=== PATIENT | female | born 1955 | race Caucasian/White ===

== ENCOUNTER 2021-10-16 12:08 | Emergency (ER) | payer MEDICARE ==
[~2021-10-16] VITALS: Ht 177.8 cm; Wt 56.7 kg
--- NOTE | 2021-10-16 12:28 | NUR ---
at bedside for evaluation.
[2021-10-16] MEDS ORDERED: TRAMADOL HCL 50 MG TABLET PO ONE (12:30)
[2021-10-16] MEDS ORDERED: TRAMADOL HCL 50 MG TABLET ONE (12:32)
--- NOTE | 2021-10-16 12:56 | NUR ---
Patient taken to CT.
--- NOTE | 2021-10-16 13:09 | NUR ---
Patient back from CT scan.
[2021-10-16] MEDS ORDERED: HYDROCODONE/APAP 5-325MG TABLET ONE (13:24)
[2021-10-16] MEDS ORDERED: HYDROCODONE/APAP 5-325MG TABLET PO ONE (13:30)
[2021-10-16] MEDS ORDERED: HYDR-4209 PO ×2 (13:36→13:48)
[2021-10-16] MEDS ORDERED: CEPH500C2 PO ×2 (13:36→13:48)
--- NOTE | 2021-10-16 13:56 | NUR ---
Patient discharged to home in stable condition. Written and verbal after care instructions given. Patient verbalizes understanding of instructions. Stressed follow up or return to ER for worsening s/s.
[2021-10-16 13:57] VITALS: BP 128/72
== END 2021-10-16 13:55 | disposition home or self-care (01) ==
LOC: EDBD 12:08 → ER 12:08
DX: S02.32XA Fracture of orbital floor, left side, initial encounter for closed fracture (principal); S02.842A Fracture of lateral orbital wall, left side, initial encounter for closed fracture; W01.190A Fall on same level from slipping, tripping and stumbling with subsequent striking against furniture, initial encounter; Y92.019 Unspecified place in single-family (private) house as the place of occurrence of the external cause; Z85.828 Personal history of other malignant neoplasm of skin; Z85.118 Personal history of other malignant neoplasm of bronchus and lung; S01.81XA Laceration without foreign body of other part of head, initial encounter; S01.412A Laceration without foreign body of left cheek and temporomandibular area, initial encounter; H11.32 Conjunctival hemorrhage, left eye; Z87.820 Personal history of traumatic brain injury
CPT/HCPCS: 70450; 70486; A4663

== ENCOUNTER 2022-02-05 22:01 | Emergency (ER) | payer MEDICARE ==
[~2022-02-05] VITALS: Ht 177.8 cm; Wt 54.4 kg
[~2022-02-05 22:01] MED LIST: CEPH500C2 PO; HYDR-4209 PO
[2022-02-05] MEDS ORDERED: IV NORMAL SALINE 1000 ML BAG IV ONE (23:15)
[2022-02-05] MEDS ORDERED: METOCLOPRAMIDE HCL 10 MG/2 ML VIAL IV ONE (23:15)
[2022-02-05] MEDS ORDERED: diphenhydrAMINE 50 MG/1 ML VIAL IV ONE (23:15)
[2022-02-05] MEDS ORDERED: MORPHINE SULFATE 4 MG/1 ML DISP.SYRIN IV ONE (23:15)
[2022-02-05] MEDS ORDERED: ONDANSETRON 4 MG/2 ML VIAL IV ONE (23:15)
[2022-02-05 23:27] LABS: HEMATOCRIT 45.7 % (31.2-41.9); MEAN CORPUSCULAR HEMOGLOBIN 26.7 uug (24.7-32.8); MEAN CORPUSCULAR VOLUME 81.8 fL (75.5-95.3); PLATELET COUNT (AUTO) 345 K/uL (179-408)
[2022-02-05 23:50] LABS: ALANINE AMINOTRANSFERASE 24 U/L (14-59); ALKALINE PHOSPHATASE 64 U/L (50-136); ASPARTATE AMINOTRANSFERASE 19 U/L (15-37); BILIRUBIN,DIRECT 0.1 mg/dL (0.0-0.2); BILIRUBIN,TOTAL 0.4 mg/dL (0.2-1.0); CARBON DIOXIDE 24 mmol/L (21-32); CHLORIDE 101 mmol/L (98-107); CREATININE 1.2 mg/dL (0.6-1.3); GLUCOSE 147 mg/dL (74-106); POTASSIUM 3.8 mmol/L (3.5-5.1); TOTAL PROTEIN, SERUM 8.3 g/dL (6.4-8.2); UREA NITROGEN, BLOOD 18 mg/dL (7-18)
[2022-02-06] MEDS ORDERED: diphenhydrAMINE 50 MG/1 ML VIAL ONE ×2 (00:23→05:01)
[2022-02-06] MEDS ORDERED: METOCLOPRAMIDE HCL 10 MG/2 ML VIAL ONE ×2 (00:23→05:01)
[2022-02-06] MEDS ORDERED: MORPHINE SULFATE 4 MG/1 ML DISP.SYRIN ONE (00:23)
--- NOTE | 2022-02-06 01:18 | NUR ---
Patient in bed at lowest position, sr up x2 call light within reach.
[2022-02-06] MEDS ORDERED: MAGNESIUM SULFATE/D5W 100 ML ONE ×2 (02:36→03:56)
[2022-02-06] MEDS: MAGNESIUM SULFATE/D5W 100 ML IV SCH ×2 (02:44→04:01)
[2022-02-06] MEDS ORDERED: ONDANSETRON 4 MG/2 ML VIAL ONE (04:09)
[2022-02-06] MEDS ORDERED: diphenhydrAMINE 50 MG/1 ML VIAL IV ONE (05:00)
[2022-02-06] MEDS ORDERED: METOCLOPRAMIDE HCL 10 MG/2 ML VIAL IV ONE (05:00)
[2022-02-06] MEDS ORDERED: LISINOPRIL 10 MG TABLET PO ONE (05:15)
[2022-02-06] MEDS ORDERED: LISINOPRIL 10 MG TABLET ONE (05:22)
[2022-02-06] MEDS ORDERED: HYDR-4209 PO (05:54)
[2022-02-06] MEDS ORDERED: DIPH25CA83 PO (05:58)
[2022-02-06] MEDS ORDERED: METO-295 PO (05:58)
--- NOTE | 2022-02-06 06:32 | NUR ---
Patient ambulated to the bathroom with steady gait. No acute distress noted.
--- NOTE | 2022-02-06 07:34 | NUR ---
Removed IV intact, site okay, bandaged. Gave pt and RX and d/c instructions, verbalized understanding.
[2022-02-06 07:35] VITALS: BP 191/109
[2022-02-09] MEDS ORDERED: CIPR500T5 PO (13:21)
[2022-02-09] MEDS ORDERED: ONDA4TAB5 PO (13:21)
[2022-02-09] MEDS ORDERED: FAMO-132 PO (13:26)
== END 2022-02-06 07:25 | disposition home or self-care (01) ==
LOC: ER 22:05
DX: R10.13 Epigastric pain (principal); R19.7 Diarrhea, unspecified; R11.11 Vomiting without nausea; J02.9 Acute pharyngitis, unspecified; R05.9 Cough, unspecified; Z20.822 Contact with and (suspected) exposure to COVID-19; R94.8 Abnormal results of function studies of other organs and systems; R94.31 Abnormal electrocardiogram [ECG] [EKG]; Z85.118 Personal history of other malignant neoplasm of bronchus and lung; Z85.05 Personal history of malignant neoplasm of liver; Z92.21 Personal history of antineoplastic chemotherapy; Z92.3 Personal history of irradiation; Z87.820 Personal history of traumatic brain injury; Z85.828 Personal history of other malignant neoplasm of skin
CPT/HCPCS: 99285; 74176; 96375; 96361 ×2; 80076; 80048; 83880; 85025; 84484; 36415 ×2; 93005; 83605; 96365; 71045; 96366; 87426; 83690; 87400; 96376; J1200 ×2; J3475 ×2; J2765 ×2; J2405; J2270; J7040; A4663

== ENCOUNTER → 2022-02-09 | Emergency (ER) | payer MEDICARE ==
[~2022-02-09] VITALS: Ht 182.9 cm; Wt 77.1 kg
[~2022-02-09] MED LIST changes: +CIPR500T5 PO; +DIPH25CA83 PO; +FAMO-132 PO; +FAMOTIDINE. 20 MG/2 ML VIAL IV ONE; +IOHEXOL 300MG/ML 100 ML INFUS..BTL ONE; +IV NORMAL SALINE 1000 ML BAG IV ONE; +IV NORMAL SALINE 250 ML IV ONE; +LIDOCAINE VISCUS 2% 15 ML UDC MM ONE; +LIDOCAINE VISCUS 2% 15 ML UDC ONE; +MAG HYDROX/AL HYDROX/SIMETH 30 ML LIQUID UDC ONE; +MAG HYDROX/AL HYDROX/SIMETH 30 ML LIQUID UDC PO ONE; +METO-295 PO; +MORPHINE SULFATE 4 MG/1 ML DISP.SYRIN IV ONE; +MORPHINE SULFATE 4 MG/1 ML DISP.SYRIN ONE; +ONDA4TAB5 PO; +ONDANSETRON 4 MG/2 ML VIAL IV ONE; +ONDANSETRON 4 MG/2 ML VIAL ONE; +SWABABLE VALVE TRANSFER SET EA MC ONE
--- NOTE | 2022-02-09 10:00 | NUR ---
PT BROUGHT IN BY EMS; ABD PAIN 10/10 SHARP. PLACED ON MANAGER OF APPLICATION DEVELOPMENT.
[2022-02-09 10:18] LABS: HEMATOCRIT 42.5 % (31.2-41.9); MEAN CORPUSCULAR HEMOGLOBIN 26.9 uug (24.7-32.8); MEAN CORPUSCULAR VOLUME 80.5 fL (75.5-95.3); PLATELET COUNT (AUTO) 331 K/uL (179-408)
--- NOTE | 2022-02-09 10:30 | NUR ---
IV STARTED AND MEDICATION GIVEN; PT TOLERATED WELL
[2022-02-09 10:33] LABS: NEUTROPHILS % (MANUAL) 0 % (42-75)
[2022-02-09 10:34] LABS: POTASSIUM 3.1 mmol/L (3.5-5.1)
[2022-02-09 10:39] LABS: BILIRUBIN,DIRECT 0.2 mg/dL (0.0-0.2); BILIRUBIN,TOTAL 0.6 mg/dL (0.2-1.0); TOTAL PROTEIN, SERUM 7.6 g/dL (6.4-8.2)
[2022-02-09 11:38] LABS: *BILIRUBIN,URIN NEGATIVE (NEGATIVE); *BLOOD, URINE 1+ (NEGATIVE); *CLARITY,URINE CLEAR (CLEAR); *COLOR,URINE YELLOW (YELLOW); *KETONES,URINE TRACE (NEGATIVE); *UROBILINOGEN,URINE 0.2 E.U./dl (NORMAL); LEUKOCYTE ESTERASE ,URINE NEGATIVE (NEGATIVE); NITRITE, URINE NEGATIVE (NEGATIVE); UGLUCOSE NEGATIVE (NEGATIVE)
[2022-02-09 12:55] LABS: BACTERIA,URINE NONE SEEN /HPF (NONE SEEN); RBC,URINE 0-3 /HPF (0-3); SQUAMOUS EPITHELIAL CELL,UR FEW /HPF (NONE SEEN); WBC,URINE 0-3 /HPF (0-3)
[2022-02-09 14:31] VITALS: BP 144/92
== END | disposition home or self-care (01) ==
LOC: ER 09:39
DX: K52.9 Noninfective gastroenteritis and colitis, unspecified (principal); K29.70 Gastritis, unspecified, without bleeding; R07.9 Chest pain, unspecified; C78.7 Secondary malignant neoplasm of liver and intrahepatic bile duct; Z85.118 Personal history of other malignant neoplasm of bronchus and lung; Z85.828 Personal history of other malignant neoplasm of skin; Z90.2 Acquired absence of lung [part of]; Z92.21 Personal history of antineoplastic chemotherapy; Z92.3 Personal history of irradiation; I10 Essential (primary) hypertension; Z90.710 Acquired absence of both cervix and uterus
CPT/HCPCS: 99285; 74177; 96374; 96361; 76705; 71045; 96375; 80076; 80048; 81001; 83690; 85025; 84484 ×2; 36415; 93005; 96376; 85007; J3490; J2405; Q9967; J2270 ×2; J7040; 70030-TC

== ENCOUNTER 2022-03-15 12:59 | Inpatient (IN) | payer MEDICARE ==
[~2022-03-15] VITALS: Ht 177.8 cm; Wt 54.4 kg
[~2022-03-15 12:59] MED LIST changes: -FAMOTIDINE. 20 MG/2 ML VIAL IV ONE; -IOHEXOL 300MG/ML 100 ML INFUS..BTL ONE; -IV NORMAL SALINE 1000 ML BAG IV ONE; -IV NORMAL SALINE 250 ML IV ONE; -LIDOCAINE VISCUS 2% 15 ML UDC MM ONE; -LIDOCAINE VISCUS 2% 15 ML UDC ONE; -MAG HYDROX/AL HYDROX/SIMETH 30 ML LIQUID UDC ONE; -MAG HYDROX/AL HYDROX/SIMETH 30 ML LIQUID UDC PO ONE; -MORPHINE SULFATE 4 MG/1 ML DISP.SYRIN IV ONE; -MORPHINE SULFATE 4 MG/1 ML DISP.SYRIN ONE; -ONDANSETRON 4 MG/2 ML VIAL IV ONE; -ONDANSETRON 4 MG/2 ML VIAL ONE; -SWABABLE VALVE TRANSFER SET EA MC ONE
--- NOTE | 2022-03-15 13:15 | NUR ---
1) Patient arrived in ER accompanied by sister. 2) Patient changed into a gown - feeling to cold to do so. 3) Provided with x2 blankets and made comfortable. 4) Vitals - bp diastolic in the lower 100s (1002 -105). 5) Patient stated that high diastolic is normal for her even though she is on home ant-bp meds. 6) MD informed of high diastolic - no new orders provided.
--- NOTE | 2022-03-15 13:31 | NUR ---
1) Patient seen by ER MD and ordered: Imaging as follows: (i) chest x-ray (ii) CT Scan of the lungs to rule out PE 2) Labs
[2022-03-15] MEDS ORDERED: PROC-11 PO (13:50)
[2022-03-15] MEDS ORDERED: LISI2.5T14 PO (13:50)
[2022-03-15] MEDS ORDERED: OLME40TA12 PO (13:50)
[2022-03-15] MEDS ORDERED: CLON2TAB PO (13:50)
[2022-03-15 14:00] LABS: POTASSIUM 4.1 mmol/L (3.5-5.1)
--- NOTE | 2022-03-15 14:03 | NUR ---
1) Patient complaining of feeling like she is struggling to breath. 2) However, sats in the mid 90s - 94-96 on RA. 3) MD informed and ordered 2L oxygen via NC, and administered as prescribed
[2022-03-15] MEDS ORDERED: IV NORMAL SALINE 250 ML IV ONE (14:05)
[2022-03-15] MEDS ORDERED: SWABABLE VALVE TRANSFER SET EA MC ONE (14:05)
[2022-03-15] MEDS ORDERED: IOHEXOL 350 100 ML INFUS..BTL ONE (14:05)
[2022-03-15 14:09] LABS: BILIRUBIN,DIRECT 0.1 mg/dL (0.0-0.2); BILIRUBIN,TOTAL 0.4 mg/dL (0.2-1.0); TOTAL PROTEIN, SERUM 7.3 g/dL (6.4-8.2)
[2022-03-15 14:15] LABS: HEMATOCRIT 36.8 % (31.2-41.9); MEAN CORPUSCULAR HEMOGLOBIN 26.3 uug (24.7-32.8); MEAN CORPUSCULAR VOLUME 80.9 fL (75.5-95.3); PLATELET COUNT (AUTO) 209 K/uL (179-408)
[2022-03-15 14:24] LABS: NEUTROPHILS % (MANUAL) 0 % (42-75)
--- NOTE | 2022-03-15 14:24 | NUR ---
1) Covid and Flue swabs taken and sent to lab at the time of this report - awaiting results.
--- NOTE | 2022-03-15 14:35 | NUR ---
CT informed that patient is ready as follows: (i) iv access 20g in the left AC - clean, dry, intact and patent. (ii) Consent signed (iii)Contrast checklist completed
--- NOTE | 2022-03-15 14:47 | NUR ---
Patient leaving now for CT Scan at the time of this report
--- NOTE | 2022-03-15 15:15 | NUR ---
Returned from CT SCan
[2022-03-15] MEDS ORDERED: DOXYCYCLINE HYCLATE IV 100 MG in IV DEXTROSE 5% 100 ML IV ONE (16:15)
[2022-03-15] MEDS ORDERED: CEFTRIAXONE 1 G in IV DEXTROSE 5% 50 ML IV ONE (16:15)
[2022-03-15] MEDS ORDERED: HYDROCODONE/APAP 5-325MG TABLET PO PRN (17:00)
[2022-03-15] MEDS ORDERED: CEFTRIAXONE /D5W 50ML IVPB **ER PYXIS IV ONE (17:05)
--- NOTE | 2022-03-15 17:10 | NUR ---
1) Pharmacy called and will send Vibramycin susanna. 2) RN administered Rocephin as prescribed.
[2022-03-15] MEDS ORDERED: MAGNESIUM HYDROXIDE 30 ML LIQUID UDC PO PRN (17:15)
[2022-03-15] MEDS ORDERED: REMEDY ESSENTIAL ZINC PASTE 113 GM TP PRN (17:15)
--- NOTE | 2022-03-15 17:28 | NUR ---
Vibramycin received and administered as prescribed
--- NOTE | 2022-03-15 18:14 | NUR ---
1) Patient lying in bed comfortably - no further complaints except: 2) may have taken her cell phone - called him and left a message
[2022-03-15] MEDS: ALBUTEROL SULFATE 1.25 MG/3 ML NEBU NEB PRN (20:39)
[2022-03-15] MEDS: IPRATROPIUM BROMIDE 0.5 MG/2.5 ML NEBU NEB PRN (20:39)
[2022-03-15] MEDS ORDERED: HYDROCODONE/APAP 5-325MG TABLET ONE (22:19)
[2022-03-15] MEDS ORDERED: ALBUTEROL SULFATE 2.5 MG/3 ML NEBU ONE (22:23)
[2022-03-15] MEDS ORDERED: ONDANSETRON 4 MG/2 ML VIAL IV ONE (22:30)
[2022-03-15] MEDS ORDERED: IPRATROPIUM BROMIDE 0.5 MG/2.5 ML NEBU NEB ONE (22:30)
[2022-03-15] MEDS ORDERED: ALBUTEROL SULFATE 2.5 MG/ 0.5 ML NEBU NEB ONE (22:30)
[2022-03-15] MEDS ORDERED: ONDANSETRON 4 MG/2 ML VIAL ONE (22:31)
--- NOTE | 2022-03-15 23:00 | NUR ---
Patient still on the ER tracker. no charted out by Dorina RESTREPO
--- NOTE | 2022-03-15 23:05 | NUR ---
Received patient from ER via gurney, awake alert and oriented x 4. In no acute distress. IV access to LAC intact and patent. Sinus rhythm on tele HR 95. Oriented to room, BR, TV and call light. Routine admission care rendered, care plan initiated. Needs assessed and attended to.
[2022-03-16 00:12] VITALS: BP 171/105
[2022-03-16] MEDS ORDERED: GUAIFENESIN/DEXTROMETHORPHAN TAB.SR.12H PO SCH (00:45)
[2022-03-16] MEDS: GUAIFENESIN/DEXTROMETHORPHAN 5 ML UDC PO PRN ×3 (01:30→23:20)
[2022-03-16 04:05] VITALS: BP 159/96
[2022-03-16] MEDS: IPRATROPIUM BROMIDE 0.5 MG/2.5 ML NEBU NEB PRN ×2 (04:38→10:44)
[2022-03-16] MEDS: ALBUTEROL SULFATE 1.25 MG/3 ML NEBU NEB PRN ×2 (04:39→10:44)
[2022-03-16 07:10] LABS: HEMATOCRIT 38.9 % (31.2-41.9); MEAN CORPUSCULAR HEMOGLOBIN 25.9 uug (24.7-32.8); MEAN CORPUSCULAR VOLUME 80.1 fL (75.5-95.3); PLATELET COUNT (AUTO) 197 K/uL (179-408)
[2022-03-16 07:27] LABS: CREATININE 0.9 mg/dL (0.6-1.3); MAGNESIUM 2.4 mg/dL (1.8-2.4); PHOSPHOROUS 2.3 mg/dL (2.5-4.9); POTASSIUM 3.8 mmol/L (3.5-5.1)
--- NOTE | 2022-03-16 07:30 | NUR ---
NIGHT REPORT: 1) SAFETY: (a) Patient has iv access LAC 20G - saline locked, however, on IV ATB. (b) No sign of infection, inflammation observed, site is patent, intact and flushing 2) BREATHING: Patient SOB - on 2 liters - Saturating between 94 - 96%. 3) MOBILITY: Patient is fully mobile - however, unsteady gait. 4) SKIN:Intact, no rash or discoloration observed. 5) PAIN: No c/o of pain or non verbal sign of pain. 6) EATING & DRINKING: Poor appetite. PLAN: (i) Continue to be on oxygen as prescribed. (ii) Await MD review - patient wants to know who her MD is (iii) treat patient accordingly (iv) Patient want nebulizer PRN as well as scheduled.
--- NOTE | 2022-03-16 09:00 | NUR ---
ROXIE OLIVEROS changed Vibramycin to Cefepime - for bronchitis
[2022-03-16] MEDS: FAMOTIDINE 20 MG TABLET PO SCH ×3 (10:07→18:06)
[2022-03-16] MEDS: CLONAZEPAM 1 MG TABLET PO SCH ×3 (10:07→18:08)
[2022-03-16] MEDS: LOSARTAN POTASSIUM 50 MG TABLET PO SCH (10:09)
[2022-03-16] MEDS: DOXYCYCLINE HYCLATE IV 100 MG in IV DEXTROSE 5% 100 ML IV SCH ×2 (10:12→20:34)
[2022-03-16 10:19] LABS: SITE, VBG LEFT RADIAL; VENT MODE, VBG Nasal Cannula
[2022-03-16 11:48] VITALS: BP 153/94
[2022-03-16] MEDS: IPRATROPIUM BROMIDE 0.5 MG/2.5 ML NEBU NEB SCH ×3 (12:09→21:10)
[2022-03-16] MEDS: ALBUTEROL SULFATE 2.5 MG/3 ML NEBU NEB SCH ×3 (12:09→21:11)
--- NOTE | 2022-03-16 15:00 | NUR ---
Spoke to DECORATING SUPERVISOR, patient complaining of pain: 1) [place] increased to 10/325 Q6 2) Dilaudid 1mg Q6 3) added Tessalon for coughing - can bring Mucinex and inform pharmacy to add it to [facility]
[2022-03-16 16:05] VITALS: BP 171/88
[2022-03-16] MEDS ORDERED: TOPI100T PO (16:43)
[2022-03-16] MEDS: HYDROMORPHONE 1 MG/1 ML DISP.SYRIN IM PRN ×2 (16:50→23:28)
[2022-03-16] MEDS: methylPREDNISolone SOD SUCC 40 MG/ML VIAL IV SCH ×2 (16:51→21:14)
[2022-03-16] MEDS: BENZONATATE 100 MG CAPSULE PO SCH ×2 (16:51→18:05)
[2022-03-16] MEDS: CEFEPIME HCL 2 G in IV DEXTROSE 5% 100 ML IV SCH ×2 (16:54→21:15)
[2022-03-16] MEDS ORDERED: NEUTRA PHOS PACKET PO ONE (17:00)
[2022-03-16] MEDS: TOPIRAMATE 100 MG TABLET PO SCH (18:06)
--- NOTE | 2022-03-16 19:23 | NUR ---
1) Patient much more happier after Dilaudid. 2) Will endorse care to night staff accordingly
[2022-03-16 20:00] VITALS: BP 139/99
[2022-03-16] MEDS ORDERED: CEFTRIAXONE 1 G in IV DEXTROSE 5% 50 ML IV SCH (21:00)
[2022-03-16] MEDS: ONDANSETRON 4 MG/2 ML VIAL IV PRN (23:41)
[2022-03-17] VITALS: BP 159/99
[2022-03-17 04:00] VITALS: BP 140/87
[2022-03-17] MEDS: GUAIFENESIN/DEXTROMETHORPHAN 5 ML UDC PO PRN ×2 (05:20→21:46)
[2022-03-17] MEDS: methylPREDNISolone SOD SUCC 40 MG/ML VIAL IV SCH ×2 (05:21→21:30)
[2022-03-17] MEDS: CEFEPIME HCL 2 G in IV DEXTROSE 5% 100 ML IV SCH ×3 (05:31→21:49)
[2022-03-17] MEDS: ALBUTEROL SULFATE 2.5 MG/3 ML NEBU NEB SCH ×4 (06:37→19:34)
[2022-03-17] MEDS: IPRATROPIUM BROMIDE 0.5 MG/2.5 ML NEBU NEB SCH ×4 (06:37→19:34)
[2022-03-17 06:56] LABS: HEMATOCRIT 38.3 % (31.2-41.9); MEAN CORPUSCULAR VOLUME 80.5 fL (75.5-95.3); PLATELET COUNT (AUTO) 220 K/uL (179-408)
--- NOTE | 2022-03-17 07:05 | NUR ---
Patient slept intermittently, no SOB, noted with occasional cough. Needs assessed and attended to.
[2022-03-17 07:07] LABS: MAGNESIUM 2.4 mg/dL (1.8-2.4); PHOSPHOROUS 2.2 mg/dL (2.5-4.9)
[2022-03-17] MEDS: DOXYCYCLINE HYCLATE IV 100 MG in IV DEXTROSE 5% 100 ML IV SCH ×2 (08:50→21:31)
[2022-03-17] MEDS: LOSARTAN POTASSIUM 50 MG TABLET PO SCH (08:51)
[2022-03-17] MEDS: FAMOTIDINE 20 MG TABLET PO SCH ×2 (08:52→16:28)
[2022-03-17] MEDS: BENZONATATE 100 MG CAPSULE PO SCH ×2 (08:52→16:30)
[2022-03-17] MEDS: CLONAZEPAM 1 MG TABLET PO SCH ×3 (08:52→16:28)
[2022-03-17] MEDS: TOPIRAMATE 100 MG TABLET PO SCH ×2 (08:52→16:28)
--- NOTE | 2022-03-17 09:00 | NUR ---
WENT TO PATIENT'S ROOM AFTER HEARING BANGING & CRASHING NOISES. FOUND PATIENT SLAMMING TELEPHONE ON CONSOLE UNTIL IT WAS BROKEN. PATIENT VERY UPSET THAT SHE HAD CALLED NURSE 7 TIMES WITH NO RESPONSE. INSTRUCTED THAT ONLY 2 PEOPLE HEARD ONE CALL, AND INSTRUCTED PATIENT THAT NURSES WERE STILL IN REPORT. TELEPHONE REPLACED. PATIENT STILL VERY ANGRY. APOLOGIZED TO PATIENT, INTRODUCED MYSELF ONCE PATIENT CALMED DOWN. ASSISTED BACK TO BED, AND BREAKFAST AND AM MEDS. GIVEN.
[2022-03-17] MEDS: HYDROMORPHONE 1 MG/1 ML DISP.SYRIN IM PRN ×3 (09:25→22:52)
[2022-03-17] MEDS: ONDANSETRON 4 MG/2 ML VIAL IV PRN ×2 (09:26→16:31)
--- NOTE | 2022-03-17 09:30 | NUR ---
PATIENT VERY APOLOGETIC, AND IV MED ADMINISTERED FOR PAIN CONTROL. MED FOR NAUSEA ALSO GIVEN FOR C/O NAUSEA STIMULATED BY DILAUDID.
--- NOTE | 2022-03-17 10:00 | NUR ---
SLEEPING. MEDS EFFECTIVE.
--- NOTE | 2022-03-17 10:30 | NUR ---
INSTRUCTED THAT BEVELING MACHINE OPERATOR NOTIFIED THAT PATIENT WISHES TO COMPLAIN ABOUT EVENTS EARLIER. STATES THAT PROBLEM NOW RESOLVED, AND SHE DID NOT WISH TO COMPLAIN.
[2022-03-17 11:26] VITALS: BP 144/90
[2022-03-17] MEDS: HYDROCODONE/APAP 10-325 MG TABLET PO PRN ×2 (13:22→21:46)
[2022-03-17] MEDS: ALBUTEROL SULFATE 1.25 MG/3 ML NEBU NEB PRN (13:56)
[2022-03-17] MEDS: IPRATROPIUM BROMIDE 0.5 MG/2.5 ML NEBU NEB PRN (13:56)
[2022-03-17 14:58] VITALS: BP 143/94
--- NOTE | 2022-03-17 16:30 | NUR ---
HERE, AND STANDING IN NURSING STATION, REQUESTING TO SPEAK TO CHARGE NURSE. INSTRUCTED THAT Robby ALLEN WAS HER NURSE, AND WILL SPEAK TO HIM OUTSIDE OF THE NURSING STATION. STATES THAT PATIENT NEEDED TO BE RECONNECTED TO IV. INSTRUCTED THAT ANTIBIOTICS ARE TIMED, AND NOT DUE AT THIS TIME. INSISTED THAT PT TECH HAD DC'D IV & IVPB. INSTRUCTED THAT PT TECH NOT ALLOWED TO TAMPER WITH IV LINES, AND ALEJANDRO RN HAD DISCONNECTED THE IV FOR AMBULATION AND EXERCISES. PATIENT AGREED THAT HOW IT TOOK PLACE.
[2022-03-17] MEDS ORDERED: SODIUM PHOSPHATE MM 15 MMOL in IV NORMAL SALINE 250 ML IV ONE (17:00)
--- NOTE | 2022-03-17 17:30 | NUR ---
RUBEN, AIR INTERCEPT CONTROLLER SUPERVISOR CALLED TO SPEAK WITH THIS ANGRY PER HIS REQUEST.
[2022-03-17 20:00] VITALS: BP 159/91
[2022-03-18] VITALS: BP 149/88
[2022-03-18] MEDS: HYDROCODONE/APAP 10-325 MG TABLET PO PRN ×3 (03:22→18:50)
[2022-03-18 04:00] VITALS: BP 145/97
[2022-03-18] MEDS: CEFEPIME HCL 2 G in IV DEXTROSE 5% 100 ML IV SCH ×3 (06:10→21:46)
[2022-03-18] MEDS: ALBUTEROL SULFATE 2.5 MG/3 ML NEBU NEB SCH ×4 (07:21→19:28)
[2022-03-18] MEDS: IPRATROPIUM BROMIDE 0.5 MG/2.5 ML NEBU NEB SCH ×4 (07:21→19:28)
[2022-03-18 07:45] LABS: HEMATOCRIT 39.9 % (31.2-41.9); MEAN CORPUSCULAR HEMOGLOBIN 25.9 uug (24.7-32.8); MEAN CORPUSCULAR VOLUME 81.5 fL (75.5-95.3); PLATELET COUNT (AUTO) 213 K/uL (179-408)
[2022-03-18 08:00] VITALS: BP 137/74
[2022-03-18] MEDS: HYDROMORPHONE 1 MG/1 ML DISP.SYRIN IM PRN ×3 (08:02→20:32)
[2022-03-18 08:04] LABS: MAGNESIUM 2.6 mg/dL (1.8-2.4); POTASSIUM 4.3 mmol/L (3.5-5.1)
[2022-03-18] MEDS: TOPIRAMATE 100 MG TABLET PO SCH ×2 (08:29→18:18)
[2022-03-18] MEDS: CLONAZEPAM 1 MG TABLET PO SCH ×3 (08:29→18:18)
[2022-03-18] MEDS: methylPREDNISolone SOD SUCC 40 MG/ML VIAL IV SCH (08:29)
[2022-03-18] MEDS: FAMOTIDINE 20 MG TABLET PO SCH ×2 (08:30→18:18)
[2022-03-18] MEDS: ONDANSETRON 4 MG/2 ML VIAL IV PRN (08:30)
[2022-03-18] MEDS: BENZONATATE 100 MG CAPSULE PO SCH ×2 (08:30→18:18)
[2022-03-18] MEDS: DOXYCYCLINE HYCLATE IV 100 MG in IV DEXTROSE 5% 100 ML IV SCH ×2 (08:32→20:20)
[2022-03-18] MEDS: LOSARTAN POTASSIUM 50 MG TABLET PO SCH (08:50)
[2022-03-18 11:06] VITALS: BP 149/48
[2022-03-18] MEDS: GLUCERNA SHAKE 237 ML CAN PO SCH ×2 (14:00→17:00)
[2022-03-18] MEDS: PROTEIN SUPPLEMENT (PROSTAT) 30 ML LIQUID PO SCH (14:00)
[2022-03-18] MEDS: GUAIFENESIN/DEXTROMETHORPHAN 5 ML UDC PO PRN ×2 (14:33→20:20)
[2022-03-18 15:37] VITALS: BP 159/86
[2022-03-19] MEDS: HYDROCODONE/APAP 10-325 MG TABLET PO PRN ×2 (00:30→10:26)
[2022-03-19] MEDS: ALBUTEROL SULFATE 1.25 MG/3 ML NEBU NEB PRN ×2 (00:44→13:22)
[2022-03-19] MEDS: IPRATROPIUM BROMIDE 0.5 MG/2.5 ML NEBU NEB PRN ×2 (00:44→13:22)
[2022-03-19] MEDS: HYDROMORPHONE 1 MG/1 ML DISP.SYRIN IM PRN (04:09)
[2022-03-19] MEDS: CEFEPIME HCL 2 G in IV DEXTROSE 5% 100 ML IV SCH ×3 (06:09→22:14)
[2022-03-19] MEDS: ALBUTEROL SULFATE 2.5 MG/3 ML NEBU NEB SCH ×4 (07:36→20:13)
[2022-03-19] MEDS: IPRATROPIUM BROMIDE 0.5 MG/2.5 ML NEBU NEB SCH ×4 (07:36→20:13)
[2022-03-19] MEDS: PROTEIN SUPPLEMENT (PROSTAT) 30 ML LIQUID PO SCH (08:00)
[2022-03-19] MEDS: GLUCERNA SHAKE 237 ML CAN PO SCH ×2 (08:00→16:39)
[2022-03-19] MEDS: FAMOTIDINE 20 MG TABLET PO SCH ×2 (09:27→16:35)
[2022-03-19] MEDS: predniSONE 20 MG TABLET PO SCH (09:27)
[2022-03-19] MEDS: LOSARTAN POTASSIUM 50 MG TABLET PO SCH (09:30)
[2022-03-19] MEDS: CLONAZEPAM 1 MG TABLET PO SCH ×3 (09:30→16:35)
[2022-03-19] MEDS: TOPIRAMATE 100 MG TABLET PO SCH ×2 (09:34→16:35)
[2022-03-19] MEDS: BENZONATATE 100 MG CAPSULE PO SCH ×2 (09:34→16:37)
[2022-03-19] MEDS: GUAIFENESIN/DEXTROMETHORPHAN 5 ML UDC PO PRN ×2 (09:37→15:29)
[2022-03-19] MEDS: DOXYCYCLINE HYCLATE IV 100 MG in IV DEXTROSE 5% 100 ML IV SCH ×2 (09:37→21:05)
--- NOTE | 2022-03-19 11:30 | NUR ---
B2B Sales Manager Mara spoke with pt and family. B2B Sales Manager witnessed pt "easing herself to floor" Pt states she hit her buttocks. New order received from dr Pinzon for x ray pelvis to r/o any fx. Addendum: 03/19/22 at 1818 by JERAMY HENRIQUEZ RN pt has full range of motions of her legs and hip denies any c/o pain.
--- NOTE | 2022-03-19 11:32 | NUR ---
WENT TO ROOM WHEN CHASE RN REGIONAL SALES DIRECTOR SCREAMED FOR HELP. FOUND PATIENT SITTING ON FLOOR. AT BEDSIDE. MADE NO ATTEMPT TO ASSIST , IN FACT HE REMAINED SILENT THROUGHOUT. ASKED TO NEUROLOGY MANAGER ORDER TO LIFT PATIENT TO CHAIR. PATIENT ASSISTED TO CHAIR BY Sammie. OTHER STAFF MEMBERS IN ROOM, BUT TOO CROWDED. INSTRUCTED THAT SHE NEEDS TO CALL FOR HELP TO GO TO BATHROOM. VERBALIZED UNDERSTANDING. CHASE RN AND ZENON RESTREPO WITNESSED PATIENT ASSISTING SELF TO FLOOR, AND LEANING ON WALL. PATIENT STATES THAT SHE SIMPLY PASSED OUT. FALL WAS NOT WITNESSED BY OR STAFF. PATIENT ASSISTED BACK TO BED. SHOCK ABSORPTION FLOOR LAYER CALLED TO MOP FLOOR. ANOTHER CHAIR PROVIDED FOR . DR. HILL AND DR. DESHPANDE NOTIFIED. XRAYS DONE AND RESULTS NEGATIVE.
[2022-03-19 11:48] VITALS: BP 185/90
[2022-03-19] MEDS: HYDROMORPHONE 1 MG/1 ML DISP.SYRIN IV PRN ×2 (13:42→21:13)
[2022-03-19] MEDS: ACETAMINOPHEN 325 MG TABLET PO PRN (15:20)
[2022-03-19 16:00] VITALS: BP 165/99
--- NOTE | 2022-03-19 16:00 | NUR ---
Pelvic fx resulted no fx. Pt ambulatory to bathroom w/o any c/o pain.
[2022-03-19] MEDS: ONDANSETRON 4 MG/2 ML VIAL IV PRN (21:34)
[2022-03-20] MEDS: HYDROCODONE/APAP 10-325 MG TABLET PO PRN ×3 (01:13→15:34)
[2022-03-20] MEDS: GUAIFENESIN/DEXTROMETHORPHAN 5 ML UDC PO PRN (01:13)
[2022-03-20] MEDS: ALBUTEROL SULFATE 1.25 MG/3 ML NEBU NEB PRN (03:32)
[2022-03-20] MEDS: IPRATROPIUM BROMIDE 0.5 MG/2.5 ML NEBU NEB PRN (03:32)
[2022-03-20] MEDS: HYDROMORPHONE 1 MG/1 ML DISP.SYRIN IV PRN ×3 (03:41→18:17)
[2022-03-20] MEDS: CEFEPIME HCL 2 G in IV DEXTROSE 5% 100 ML IV SCH ×3 (05:51→22:20)
[2022-03-20] MEDS: IPRATROPIUM BROMIDE 0.5 MG/2.5 ML NEBU NEB SCH ×4 (07:40→19:57)
[2022-03-20] MEDS: ALBUTEROL SULFATE 2.5 MG/3 ML NEBU NEB SCH ×4 (07:40→19:57)
[2022-03-20] MEDS: FAMOTIDINE 20 MG TABLET PO SCH ×2 (08:25→16:31)
[2022-03-20] MEDS: LOSARTAN POTASSIUM 50 MG TABLET PO SCH (08:25)
[2022-03-20] MEDS: TOPIRAMATE 100 MG TABLET PO SCH ×2 (08:26→16:32)
[2022-03-20] MEDS: predniSONE 20 MG TABLET PO SCH (08:26)
[2022-03-20] MEDS: BENZONATATE 100 MG CAPSULE PO SCH ×2 (08:26→16:32)
[2022-03-20] MEDS: CLONAZEPAM 1 MG TABLET PO SCH ×3 (08:26→16:31)
[2022-03-20] MEDS: GLUCERNA SHAKE 237 ML CAN PO SCH ×2 (08:27→17:15)
[2022-03-20] MEDS: PROTEIN SUPPLEMENT (PROSTAT) 30 ML LIQUID PO SCH (08:27)
[2022-03-20] MEDS: DOXYCYCLINE HYCLATE IV 100 MG in IV DEXTROSE 5% 100 ML IV SCH (08:28)
[2022-03-20 11:34] VITALS: BP 156/93
--- NOTE | 2022-03-20 12:41 | NUR ---
0730-REC'D PATIENT IN BED, AWAKE, ALERT, ORIENTED. ABLE TO VERBALIZE HER NEEDS AND FOLLOW DIRECTIONS. NO ACUTE RESPIRATORY DISTRESS NOTED; BALWINDER MIDLINE FLUSHING WELL. SAFETY PRECAUTION REMINDERS PROVIDED WITH GOOD UNDERSTANDING. ORAL FLUIDS ENCOURAGED AND TAKEN WELL. ENCOURAGED TO USE CALL LIGHT FOR HELP EVERY TIME NEEDED.
[2022-03-20 15:42] VITALS: BP 159/98
[2022-03-20] MEDS ORDERED: HYDROMORPHONE 1 MG/1 ML DISP.SYRIN IM PRN (18:15)
--- NOTE | 2022-03-20 18:47 | NUR ---
Patient alert, Ox4, verbalizes needs promptly and timely, follows directions. Assisted patient with ADLS/personal care/hygiene. Care provided at routine intervals and PRN. Fall precautions observed; safety precaution reminders provided with good understanding. Patient on oxygen via N/C as ordered and effective. Patient was medicated PRN based on her pain level needs & PRN medication effective. All scheduled medications administered timely. Needs anticipated and met.
--- NOTE | 2022-03-20 18:52 | NUR ---
Dilaudid 1mg PRN Q6RS for pain order given by Dr. Darrin Bourgeois.
[2022-03-20 20:23] VITALS: BP 150/101
[2022-03-20] MEDS: DOXYCYCLINE HYCLATE 100 MG TABLET PO SCH (21:26)
[2022-03-21 04:05] VITALS: BP 160/108
[2022-03-21] MEDS: HYDROMORPHONE 1 MG/1 ML DISP.SYRIN IV PRN (05:15)
[2022-03-21] MEDS: GUAIFENESIN/DEXTROMETHORPHAN 5 ML UDC PO PRN (05:16)
[2022-03-21] MEDS: CEFEPIME HCL 2 G in IV DEXTROSE 5% 100 ML IV SCH ×3 (05:17→21:26)
[2022-03-21] MEDS: ALBUTEROL SULFATE 2.5 MG/3 ML NEBU NEB SCH ×4 (07:37→19:46)
[2022-03-21] MEDS: IPRATROPIUM BROMIDE 0.5 MG/2.5 ML NEBU NEB SCH ×4 (07:38→19:46)
[2022-03-21 07:48] LABS: HEMATOCRIT 38.9 % (31.2-41.9); MEAN CORPUSCULAR HEMOGLOBIN 26.1 uug (24.7-32.8); MEAN CORPUSCULAR VOLUME 82.1 fL (75.5-95.3); PLATELET COUNT (AUTO) 258 K/uL (179-408)
[2022-03-21 08:00] VITALS: BP 161/101
[2022-03-21] MEDS: PROTEIN SUPPLEMENT (PROSTAT) 30 ML LIQUID PO SCH (08:00)
[2022-03-21] MEDS: GLUCERNA SHAKE 237 ML CAN PO SCH ×2 (08:00→17:17)
[2022-03-21 08:19] LABS: CARBON DIOXIDE 26 mmol/L (21-32); CHLORIDE 107 mmol/L (98-107); GLUCOSE 98 mg/dL (74-106); MAGNESIUM 2.6 mg/dL (1.8-2.4); PHOSPHOROUS 1.4 mg/dL (2.5-4.9); POTASSIUM 3.8 mmol/L (3.5-5.1); UREA NITROGEN, BLOOD 14 mg/dL (7-18)
[2022-03-21] MEDS: TOPIRAMATE 100 MG TABLET PO SCH ×2 (09:54→17:17)
[2022-03-21] MEDS: BENZONATATE 100 MG CAPSULE PO SCH ×2 (09:54→17:17)
[2022-03-21] MEDS: predniSONE 20 MG TABLET PO SCH (09:54)
[2022-03-21] MEDS: DOXYCYCLINE HYCLATE 100 MG TABLET PO SCH ×2 (09:54→21:26)
[2022-03-21] MEDS: FLUOXETINE HCL 20 MG CAPSULE PO SCH (09:55)
[2022-03-21] MEDS: FAMOTIDINE 20 MG TABLET PO SCH ×2 (09:55→17:17)
[2022-03-21] MEDS: CLONAZEPAM 1 MG TABLET PO SCH ×3 (09:55→17:16)
[2022-03-21] MEDS: LOSARTAN POTASSIUM 50 MG TABLET PO SCH (09:56)
[2022-03-21 11:24] VITALS: BP 162/103
[2022-03-21 12:18] LABS: LYMPHOCYTES % (MANUAL) 18 % (20-40); MONOCYTES % (MANUAL) 13 % (2-10); NEUTROPHILS % (MANUAL) 69 % (42-75)
[2022-03-21] MEDS ORDERED: POTASSIUM PHOSPHATE MM 15 MMOL in IV NORMAL SALINE 250 ML IV ONE (12:30)
[2022-03-21] MEDS: HYDROCODONE/APAP 10-325 MG TABLET PO PRN ×2 (13:00→21:26)
[2022-03-21] MEDS ORDERED: FAMOTIDINE. 20 MG/2 ML VIAL IV ONE (14:30)
[2022-03-21] MEDS ORDERED: diphenhydrAMINE 50 MG/1 ML VIAL IV ONE (14:30)
[2022-03-21] MEDS: ACETAMINOPHEN 325 MG TABLET PO PRN (15:42)
--- NOTE | 2022-03-21 15:43 | NUR ---
TEMP 100.2 PRN TYLENOL ADMIN. REPORTED TO CHARGE AND MD. SKINNER., RN
[2022-03-21 16:00] VITALS: BP 151/95
[2022-03-21 20:00] VITALS: BP 148/90
[2022-03-22] MEDS: CEFEPIME HCL 2 G in IV DEXTROSE 5% 100 ML IV SCH (05:22)
[2022-03-22] MEDS: HYDROCODONE/APAP 10-325 MG TABLET PO PRN (05:22)
[2022-03-22 06:49] LABS: HEMATOCRIT 37.2 % (31.2-41.9); MEAN CORPUSCULAR HEMOGLOBIN 26.3 uug (24.7-32.8); MEAN CORPUSCULAR VOLUME 81.9 fL (75.5-95.3); PLATELET COUNT (AUTO) 238 K/uL (179-408)
[2022-03-22 07:09] LABS: CREATININE 0.9 mg/dL (0.6-1.3); MAGNESIUM 2.5 mg/dL (1.8-2.4); POTASSIUM 4.5 mmol/L (3.5-5.1)
[2022-03-22] MEDS: IPRATROPIUM BROMIDE 0.5 MG/2.5 ML NEBU NEB SCH ×3 (07:27→15:21)
[2022-03-22] MEDS: ALBUTEROL SULFATE 2.5 MG/3 ML NEBU NEB SCH ×3 (07:27→15:21)
[2022-03-22] MEDS: CLONAZEPAM 1 MG TABLET PO SCH ×2 (08:32→12:27)
[2022-03-22] MEDS: predniSONE 20 MG TABLET PO SCH (08:32)
[2022-03-22] MEDS: FAMOTIDINE 20 MG TABLET PO SCH (08:33)
[2022-03-22] MEDS: TOPIRAMATE 100 MG TABLET PO SCH (08:33)
[2022-03-22] MEDS: DOXYCYCLINE HYCLATE 100 MG TABLET PO SCH (08:33)
[2022-03-22] MEDS: FLUOXETINE HCL 20 MG CAPSULE PO SCH (08:33)
[2022-03-22] MEDS: BENZONATATE 100 MG CAPSULE PO SCH (08:33)
[2022-03-22] MEDS: GLUCERNA SHAKE 237 ML CAN PO SCH (08:34)
[2022-03-22] MEDS: PROTEIN SUPPLEMENT (PROSTAT) 30 ML LIQUID PO SCH (08:35)
[2022-03-22] MEDS: LOSARTAN POTASSIUM 50 MG TABLET PO SCH (08:36)
[2022-03-22] MEDS ORDERED: HYDROCODONE/APAP 10-325 MG TABLET PO PRN (10:45)
[2022-03-22] MEDS ORDERED: PRED20TA PO ×2 (11:48)
[2022-03-22] MEDS ORDERED: LEVO500T90 PO (11:48)
[2022-03-22] MEDS ORDERED: IPRA0.2S6 NEB (11:48)
[2022-03-22] MEDS ORDERED: PRED10TA PO (11:48)
[2022-03-22] MEDS ORDERED: HYDR-3980 PO (11:48)
[2022-03-22] MEDS ORDERED: BENZ-38 PO (11:48)
[2022-03-22] MEDS ORDERED: ALBU2.5V7 NEB (11:48)
[2022-03-22] MEDS ORDERED: GUAI5SYR PO (11:48)
[2022-03-22] MEDS ORDERED: HYDR-4279 PO (11:51)
[2022-03-22 12:00] VITALS: BP 145/87
[2022-03-22] MEDS ORDERED: levoFLOXacin 500 MG TABLET PO SCH (12:00)
--- NOTE | 2022-03-22 14:45 | NUR ---
Pt. discharged home and picked up by . Stable upon the discharge and no c/o pain. Normal breathing and no SOB noted. Kept the mid line on left upper hand for chemo use and notified Dr. Ndiaye and she said it is ok to keep the iv line. Pt. home medication received from pharmacy and returned back to the patient.
--- NOTE | 2022-03-22 16:42 | NUR ---
After Pt. left we had a call from patient's and saying that pt. supposed to have a nebulizer. Provided [facility] phone number and instructed to call 911 in case pt. has difficulty breathing.
--- NOTE | 2022-03-23 06:37 | NUR ---
Hydrocodone/Apap 5-325mg 1 tab tablet given at 03/15/22 22:25.
[2022-03-23] MEDS ORDERED: predniSONE 20 MG TABLET PO SCH (09:00)
== END 2022-03-22 15:00 | disposition home or self-care (01) | DRG 193 ==
LOC: ER 12:59 → TELE3 17:00 → MEDSURG3 03-19 08:51
PROVIDERS: ADMIT Nurse Practitioner Acute Care; ATTEND Nurse Practitioner Acute Care
PROC: 05H633Z Insertion of Infusion Device into Left Subclavian Vein, Percutaneous Approach (ICD-10-PCS; principal; 2022-03-19)
PROC: B547ZZA Ultrasonography of Left Subclavian Vein, Guidance (ICD-10-PCS; 2022-03-19)
DX: J15.9 Unspecified bacterial pneumonia (principal); J96.01 Acute respiratory failure with hypoxia; C78.7 Secondary malignant neoplasm of liver and intrahepatic bile duct; J44.1 Chronic obstructive pulmonary disease with (acute) exacerbation; J44.0 Chronic obstructive pulmonary disease with (acute) lower respiratory infection; D72.819 Decreased white blood cell count, unspecified; F41.9 Anxiety disorder, unspecified; Z86.73 Personal history of transient ischemic attack (TIA), and cerebral infarction without residual deficits; Z90.2 Acquired absence of lung [part of]; Z87.891 Personal history of nicotine dependence; Z85.41 Personal history of malignant neoplasm of cervix uteri; Z85.118 Personal history of other malignant neoplasm of bronchus and lung; Z85.820 Personal history of malignant melanoma of skin; Z90.710 Acquired absence of both cervix and uterus; I10 Essential (primary) hypertension; Z20.822 Contact with and (suspected) exposure to COVID-19; Z79.899 Other long term (current) drug therapy; R07.81 Pleurodynia
CPT/HCPCS: 36415; 36600; 70030-TC; 71045; 71275; 82803; 83735; 84100; 84484; 85025; 86140; 87400; 93005; 94640; 94664; A4663; G0378; J0692; J0696; J1170; J1200; J2405; J2920; J3490; J3590; J7512; Q9967